=== PATIENT | male | born 1995 | race Caucasian/White ===

== ENCOUNTER 2018-07-15 22:43 | Emergency (ER) | payer OTHER ==
[2018-07-15] MEDS ORDERED: Tetracaine HCl/PF 0.5% 4 ML Bottle EYEBOTH ONE (22:59)
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
[2018-07-15] MEDS ORDERED: Erythromycin Base 0.5% Ophth Oint 1 GM Tube EYEBOTH ONE (23:14)
== END 2018-07-15 23:45 | disposition home or self-care (01) ==
LOC: MW.ED 22:43
DX: H16.203 Unspecified keratoconjunctivitis, bilateral (principal); Z88.6 Allergy status to analgesic agent; Z88.8 Allergy status to other drugs, medicaments and biological substances
CPT/HCPCS: 99283; A9270